=== PATIENT | female | born 1995 | race Caucasian/White ===

== ENCOUNTER 2022-11-06 11:14 | Emergency (ER) | payer OTHER, SELFPAY ==
[2022-11-06 11:16] VITALS: BP 98/58; PULSE 67; RESP 18; TEMP 36.6; O2SAT 98; BMI 21.1
--- NOTE | 2022-11-06 11:16 | ED.GENADULT ---
HPI - General Adult General Chief complaint: Eye Problems Stated complaint: Eye inj Time Seen by Provider: 11/06/22 13:04 History of Present Illness HPI narrative: patient complains of swelling and discoloration around the right eyelid and upper orbit after walking into a [address] [place] on Friday she was looking up at a bird and walked into the pole, she had no loss of consciousness she has no headache but she does come pain that her right eye feels a little blurry and that at times she feels mildly lightheaded, she remembers everything about it there was no loss of consciousness no confusion no nausea or vomiting, no neck pain no numbness weakness or tingling no extremity pains no other injury PMFSH Past Medical History Source: nursing notes reviewed Social History Social History Alcohol intake: never Smoked in Last 30 Days: No Use of substances other than those prescribed or required for medical reasons: No Advance Directives: No Advance Directives Information Provided: No Physical Exam ED Vital Signs: Vital Signs - 24 hr 11/06/22 11:16 11/06/22 13:41 Temperature 97.9 F Pulse Rate 67 61 Respiratory Rate 18 18 Blood Pressure 98/58 L 104/58 L Pulse Oximetry 98 100 Oxygen Delivery Method Room Air Room Air BMI result Body Mass Index 21.1 general appearance no distress, comfortable cooperative The scalp no hematomas no bruising no ecchymosis no deformities No raccoon eyes no Valdez sign The ears no hemotympanum Eyes pupils equal round reactive to light extraocular motions are intact Visual acuity is 2024 right 2020 left No photophobia Facial exam there is mild swelling and ecchymosis in the right eyelid and right eyebrow area no significant bony tenderness anywhere Mandible had full range of motion Neck is supple Respiratory no distress The back full range of motion Extremities range of motion x4 Neuro gait and balance are normal, comprehension expression normal, cranial nerves 2-12 intact as tested, motor 5/5 x4, sensation intact and symmetrical, cerebellar exam [id number] any heel-toe walking normal Course Course Course Narrative: This is an RME: Additional HPI, ROS, PE not included below will be deferred to primary provider. This is a [id number] presenting to the emergency department for evaluation of right eye swelling x 2 days. Pt was looking upwards at a hawk that was close to her when she accidentally walked into a pole. She has had some blurred vision, dizziness and nausea since. PERRL, EOMI. Vital signs stable, patient stable to return back to the waiting room mental treatment room becomes available. Patient had normal neuro exam has no eye pain no vision loss, visual acuity was basically normal, exam was not concerning for any significant injury, she may have a mild concussion but is otherwise well-appearing with no sign of any dangerous or serious injury and is discharged Discharge Plan Discharge Clinical Impression: Contusion of right orbit Patient Disposition: Home, Self-Care Additional Instructions: there is no sign of any dangerous injury or broken bone at this time It is very common for bruising to change color over the course of a week to 2 weeks before it goes away, swelling is normal Return any time any worse condition or any concerns You can apply ice or Tylenol or Motrin if needed Interventions: ED Discharge Assessment Last Done: 11/06/22 13:44 Discharge Date/Time: 11/06/22 13:45
--- NOTE | 2022-11-06 13:00 | PC.NURSE ---
Patient with bruise noted above the right eye, patient endorsing pain to the eye and surrounding area. Patient with no vision changes. Patient otherwise well appearing.
[2022-11-06 13:41] VITALS: BP 104/58; PULSE 61; RESP 18; O2SAT 100
== END 2022-11-06 13:45 | disposition home or self-care (01) ==
PROVIDERS: Emergency Provider Emergency Medicine
DX: S05.11XA Contusion of eyeball and orbital tissues, right eye, initial encounter (principal); W22.02XA Walked into lamppost, initial encounter; Y93.01 Activity, walking, marching and hiking; Y92.414 Local residential or business street as the place of occurrence of the external cause; Y99.9 Unspecified external cause status
CPT/HCPCS: 99282; 99284

== ENCOUNTER 2022-12-11 09:42 | Emergency (ER) | payer OTHER, SELFPAY ==
[2022-12-11 09:53] VITALS: BP 106/61; PULSE 79; RESP 18; TEMP 36.6; O2SAT 96; BMI 22.0
--- NOTE | 2022-12-11 10:33 | ED_ITS ---
HPI - General Adult General Chief complaint: Dizziness Stated complaint: ? Seizure Time Seen by Provider: 12/11/22 10:33 Source: patient and EMS Mode of arrival: EMS Limitations: no limitations History of Present Illness HPI narrative: Patient is a 27 year old assigned female at with no reported medical history presenting to the emergency department today with nausea and a headache. Patient states that in the [facility] she is in, the emergency lights went off, causing her to get dizzy and collapse. Patient states that she has since been having headaches and nausea. Patient denies any dizziness, lightheadedness, abdominal pain, vomiting, fever, chills, blurry vision, double vision, loss of vision, chest pain, difficulty breathing, shortness of breath, back pain, night sweats, pain with urination, increased urinary frequency, increased urinary urgency, blood in her urine or stool, syncope or a near syncopal episode, bowel incontinence, bladder incontinence, bowel retention, bladder retention, or any other complaints at this time. Onset (ago): hour(s) Severity: mild Severity scale (1-10): 3 Relieving factors: none Exacerbating factors: none Associated symptoms: denies other symptoms Treatments prior to arrival: none Related Data Previous Rx's Medication Instructions Recorded ondansetron 4 mg disintegrating 4 mg PO Q8H 3 days #9 tabs 12/11/22 tablet Allergies Allergy/AdvReac Type Severity Reaction Status Date / Time No Known Allergies Allergy Verified 12/11/22 09:58 Review of Systems Constitutional: Constitutional: Reports no additional constitutional complaints, Denies chills, Denies fever(s), Reports headache(s) and Denies night sweats Eyes: Eyes: Reports no additional eye complaints, Denies blurry vision, Denies change in vision, Denies diplopia, Denies eye discharge, Denies loss of vision and Denies eye pain ENT: Denies dizziness and Reports headache(s) Cardiovascular: Cardiovascular: Reports no additional cardiovascular complaints, Denies chest pain, Denies lightheadedness, Denies Loss of Consciousness and Denies dyspnea Respiratory: Respiratory: Reports no additional respiratory complaints and Denies dyspnea Gastrointestinal: Gastrointestinal: Reports no additional gastrointestinal complaints, Denies abdominal pain, Denies melena, Denies hematochezia, Denies change in bowel habits, Denies change in stool character and Reports nausea Genitourinary: Genitourinary: Denies hematuria, Denies urinary frequency, Denies dysuria, Denies urinary incontinence, Denies urinary hesitancy and Denies urinary urgency Musculoskeletal: Musculoskeletal: Reports no additional musculoskeletal complaints, Denies numbness and Denies tingling Neurologic: Denies dizziness, Reports headache(s), Denies loss of vision, Denies numbness and Denies tingling Psychiatric: Psychiatric: Reports no additional psychiatric complaints Endocrine: Endocrine: Reports no additional endocrine complaints Hematologic/Lymphatic: Hematologic/Lymphatic: Reports no additional hematologi c/lymphatic complaints Allergic/Immunologic: Allergic/Immunologic: Reports no additional allergic/immunologic complaints [facility] Past Medical History Attestation statement: The following information was validated with the patient. Source: old records reviewed and nursing notes reviewed Social History Social History Alcohol intake: never Advance Directives: No Advance Directives Information Provided: Yes Physical Exam ED Vital Signs: Vital Signs - 24 hr 12/11/22 09:53 12/11/22 12:08 12/11/22 13:18 Temperature 97.8 F 97.8 F Pulse Rate 79 63 82 Respiratory Rate 18 16 19 Blood Pressure 106/61 97/56 L 98/57 L Pulse Oximetry 96 100 98 Oxygen Delivery Method Room Air Room Air Room Air BMI result Body Mass Index 22.0 Const General: cooperative, no acute distress, alert and awake Nutritional Appearance: well nourished Orientation/consciousness: patient oriented x3 Limitations: no limitations HENMT Head: Yes normal to inspection and Yes atraumatic Ears: hearing grossly normal bilaterally and external ears normal General nose exam: Normal external nose present, no nasal discharge noted and no epistaxis Face and sinus: Yes normal facial exam, No abrasion and No laceration Mouth: Normal oral and palatal mucosa present, no drooling and no muffled voice Eyes General: appearance normal, both eyes and all related structures Periorbital: periorbital findings normal Eyelids: Yes eyelids normal Conjunctivae: conjunctivae normal Pupils: Equal, round and reactive pupils present EOM: EOMs intact bilaterally Neck Neck: Yes normal visual inspection, Yes full ROM and Yes no lymphadenopathy Chest Chest palpation & inspection: normal inspection of the chest Resp Effort & Inspection: normal respiratory effort and able to speak in complete sentences Auscultation: clear to auscultation bilaterally Cardio Rate: regular rate Rhythm: regular rhythm GI Inspection: Yes normal to inspection Palpation (GI): Soft to palpation, not firm, nontender, no guarding and not rigid Neuro General: patient oriented x3 and moves all extremities Cranial nerves: Yes Equal, round and reactive pupils present Cognition (Neuro): normal cognition Motor exam (neuro): 5/5 motor strength present throughout Sensory Exam: Normal double simultaneous stimulation for sensation Coordination: [id number] test normal Extrem General: Yes normal to inspection, Yes full ROM and Yes capillary refill normal Psych Appearance: grossly normal Mental Status: mental status grossly normal Affect: normal affect Attitude: cooperative Thought process: Normal thought process present Thought content: Normal thought content present Insight: Good insight present (Psych) Medications Administered Discontinued Medications Generic Name Dose Route Start Last Admin Trade Name Freq PRN Reason Stop Dose Admin Ondansetron HCl 4 mg 12/11/22 10:48 12/11/22 11:19 Ondansetron Odt 4 Mg Tab.Rapdis TRANSLINGU 12/11/22 10:49 4 mg ONCE ONE Administration Medical Decision Making Medical Decision Making [facility] Narrative: Patient is a 27 year old assigned female at with no reported medical history presenting to the emergency department today with a headache and nausea. Patient's physical exam was unremarkable. Patient's blood work was unremarkable. Patient's urine showed no acute process. Patient's head CT showed no acute process. I explained my physical exam findings as well as all test results to the patient. I answered all questions asked by the patient. Patient received ODT Zofran which she stated helped her symptoms significantly. I stressed the i mportance of the patient taking her medication as prescribed. I stressed the importance of the patient following up with her primary care provider. I stressed the importance of the patient returning to the emergency department immediately if her symptoms were to worsen or if she were to develop any dizziness, shortness of breath, difficulty breathing, chest pain, blurry vision, loss of vision, nausea, vomiting, abdominal pain, fever, chills, back pain, or any other complaints. Patient verbalized agreement and understanding with this treatment plan and discharge. Differential Diagnosis Differential Diagnoses: The differential diagnosis associated with the presentation includes Migraine Headache Cluster headache Syncopal episode Vasovagal episode Admission/Observation Consideration of admission/observation: Escalation of care including admission/observation considered Patient would have been admitted to the hospital had her work up had any fi ndings where hospital admission was appropriate and her clinical presentation warranted hospital admission. Lab Data MDM Lab Attestation statement: I reviewed the patient's lab results. My interpretation of these studies and their corresponding values is that they are grossly normal. 12/11/22 10:14 12/11/22 10:14 Labs: Lab Results 12/11/22 12/11/22 12/11/22 Range/Units 10:14 10:14 10:18 WBC 10.3 (4.8-10.8) X10*3/uL RBC 4.53 (4.20-5.50) X10*6/uL Hgb 12.3 (12.0-16.0) g/dl Hct 38.2 (37.0-47.0) % MCV 84.3 (80.0-98.0) fL MCH 27.2 (27.0-33.0) pg MCHC 32.2 (31.0-35.0) g/dl RDW 13.1 (11.0-16.0) % Plt Count 253 (160-400) X10*3/uL MPV 10.4 (9.4-12.3) fL Immature Gran % (Auto) 0.3 (0.0-0.4) % Neut % (Auto) 86.6 H (45-73) % Lymph % (Auto) 7.0 L (20-40) % Hart % (Auto) 5.4 (2-11) % Eos % (Auto) 0.5 (0-4) % Baso % (Auto) 0.2 (0-2) % Lymph # (Auto) 0.7 L (1.2-4.9) X10*3/uL Hart # (Auto) 0.6 (0.1-1.2) X10*3/uL Eos # (Auto) 0.1 (0.0-0.4) X10*3/uL Baso # (Auto) 0.0 (0.0-0.2) X10*3/uL Abs Immat Gran (auto) 0.03 (0.00-0.03) X10*3/uL Absolute Neuts (auto) 9.0 H (2.0-8.3) x10*3/uL Absolute Nucleated RBC 0.000 (0.0-0.012) X10*3/uL Nucleated RBC % (auto) 0.0 (0.0-0.2) /100WBC Sodium 141 (135-145) mmol/L Potassium 4.2 (3.3-5.1) mmol/L Chloride 110 H (96-108) mmol/L Carbon Dioxide 23 (22-29) mmol/L Anion Gap 12 (12-20) BUN 18 H (9-16) mg/dL Creatinine 0.87 (0.5-1.4) mg/dL Estim Creat Clear Calc 84.6 Estimated GFR > 60 Random Glucose 95 (60-115) mg/dL Calcium 9.4 (8.4-10.2) mg/dL Total Bilirubin 1.0 (0.0-1.0) mg/dL Direct Bilirubin 0.3 (0.0-0.5) mg/dL AST 16 (5-31) U/L ALT 14 (0-31) U/L Alkaline Phosphatase 57 (39-117) U/L Total Protein 7.6 (6.5-8.0) g/dL Albumin 4.5 (3.5-5.0) g/dL Lipase 18 (8-78) U/L Urine Color Yellow Urine Appearance Clear Urine pH 5.5 (5.0-9.0) Ur Specific [place] >= 1.030 H (1.005-1.025) Urine Protein 30 (1+) H (Neg-Trace) mg/dL Urine Glucose (UA) Negative (Negative) mg/dL Urine Ketones Trace (Negative) mg/dL Urine Blood Negative (Negative) Urine Nitrite Negative (Negative) Ur Leukocyte Esterase Trace H (Negative) Urine RBC 0-2 (0-2) /HPF Urine WBC 0-5 (0-5) /HPF Ur Squamous Epith Cells 11-20 (0-2) /HPF Urine Bacteria Trace (None Seen) Hyaline Casts 0-2 (0-2) /LPF Urine Test (NEGATIVE) 12/11/22 Range/Units 10:18 WBC (4.8-10.8) X10*3/uL RBC (4.20-5.50) X10*6/uL Hgb (12.0-16.0) g/dl Hct (37.0-47.0) % MCV (80.0-98.0) fL MCH (27.0-33.0) pg MCHC (31.0-35.0) g/dl RDW (11.0-16.0) % Plt Count (160-400) X10*3/uL MPV (9.4-12.3) fL Immature Gran % (Auto) (0.0-0.4) % Neut % (Auto) (45-73) % Lymph % (Auto) (20-40) % Hart % (Auto) (2-11) % Eos % (Auto) (0-4) % Baso % (Auto) (0-2) % Lymph # (Auto) (1.2-4.9) X10*3/uL Hart # (Auto) (0.1-1.2) X10*3/uL Eos # (Auto) (0.0-0.4) X10*3/uL Baso # (Auto) (0.0-0.2) X10*3/uL Abs Immat Gran (auto) (0.00-0.03) X10*3/uL Absolute Neuts (auto) (2.0-8.3) x10*3/uL Absolute Nucleated RBC (0.0-0.012) X10*3/uL Nucleated RBC % (auto) (0.0-0.2) /100WBC Sodium (135-145) mmol/L Potassium (3.3-5.1) mmol/L Chloride (96-108) mmol/L Carbon Dioxide (22-29) mmol/L Anion Gap (12-20) BUN (9-16) mg/dL Creatinine (0.5-1.4) mg/dL Estim Creat Clear Calc Estimated GFR Random Glucose (60-115) mg/dL Calcium (8.4-10.2) mg/dL Total Bilirubin (0.0-1.0) mg/dL Direct Bilirubin (0.0-0.5) mg/dL AST (5-31) U/L ALT (0-31) U/L Alkaline Phosphatase (39-117) U/L Total Protein (6.5-8.0) g/dL Albumin (3.5-5.0) g/dL Lipase (8-78) U/L Urine Color Urine Appearance Urine pH (5.0-9.0) Ur Specific [place] (1.005-1.025) Urine Protein (Neg-Trace) mg/dL Urine Glucose (UA) (Negative) mg/dL Urine Ketones (Negative) mg/dL Urine Blood (Negative) Urine Nitrite (Negative) Ur Leukocyte Esterase (Negative) Urine RBC (0-2) /HPF Urine WBC (0-5) /HPF Ur Squamous Epith Cells (0-2) /HPF Urine Bacteria (None Seen) Hyaline Casts (0-2) /LPF Urine Test NEGATIVE (NEGATIVE) Independent Interpretation I performed an independent interpretation of an: CT Scan Interpretation: My interpretation is in agreement with the radiologist's impression of this imaging study. --------- EXAMINATION: CT HEAD WITHOUT CONTRAST CLINICAL INFORMATION: Head injury? COMPARISON: None available. TECHNIQUE: Contiguous axial imaging was performed from the skull base to vertex without intravenous administration of contrast. This CT examination was performed using dose optimization techniques as appropriate, variously including the following: *Automated exposure control *Adjustment of mA and/or kV according to patient size (this includes techniques or standardized protocols for targeted exams where dose is matched to indication/reason for exam; i.e. extremities or head) *Use of iterative reconstruction technique DLP: 577 mGy-cm FINDINGS: No intracranial hemorrhage. No abnormal extra-axial fluid collection. No significant mass effect or midline structure shift. Ventricular system unremarkable. Hogan-white matter interface is maintained. Calvarium intact. Visualized paranasal sinuses and mastoid air cells unremarkable. ? CT/CT head/brain wo IV con IMPRESSION: No acute intracranial pathology. Dictated By: Axel Yost MD Signed By: Electronically signed by Axel Yost MD 12/11/22 1255 Radiology Impression Discussion of test interpretation with radiology: I have reviewed the radiologist's reading. Prescription Management I considered prescription management with: Other (patient prescribed an anti- emetic) Discharge Plan Discharge Clinical Impression: Headache, Nausea Patient Disposition: Home, Self-Care Instructions: Acute Headache (DC), Acute Nausea and Vomiting (ED) Additional Instructions: Follow up with your primary care provider. Return to the emergency department immediately if your symptoms worsen or if you develop any dizziness, shortness of breath, difficulty breathing, chest pain, blurry vision, loss of vision, nausea, vomiting, abdominal pain, fever, chills, back pain, or any other complaints. Prescriptions: New ondansetron 4 mg tablet,disintegrating 4 mg PO Q8H 3 Days Qty: 9 0RF Ref[place]: [facility] [place] [facility] [place] (Call to establish and follow up with a primary care provider. If you already have a primary care provider, please follow up with them.) [facility] [place] [facility] [place] [facility] (Call to establish and follow up with a primary care provider. If you already have a primary care provider, nataliya patel follow up with them.) [facility] [place] [facility] [[place]] (Call to establish and follow up with a primary care provider. If you already have a primary care provider, please follow up with them.) Stand Alone Forms: Work/School Release Interventions: ED Discharge Assessment Last Done: 12/11/22 13:21 Discharge Date/Time: 12/11/22 13:22 Print Language: Vietnamese
[2022-12-11 12:08] VITALS: BP 97/56; PULSE 63; RESP 16; TEMP 36.6; O2SAT 100
[2022-12-11 13:18] VITALS: BP 98/57; PULSE 82; RESP 19; O2SAT 98
== END 2022-12-11 13:22 | disposition home or self-care (01) ==
PROVIDERS: Emergency Provider Emergency Medicine
DX: R51.9 Headache, unspecified (principal); R11.2 Nausea with vomiting, unspecified
CPT/HCPCS: 36415; 70450; 80048; 80076; 81001; 81025; 83690; 85025; 99283; 99284